=== PATIENT | female | born 1970 | race American Indian/Alaskan Native ===

== ENCOUNTER 2020-12-31 07:44 | Day surgery (SDC) | payer BC, OTHER ==
[~2020-12-31 07:44] MED LIST: Lactated Ringers 1,000 ML IV SCH
[2020-12-31] MEDS ORDERED: Propofol 200 MG/20 ML SDV ONE ×2 (08:51→10:04)
[2020-12-31] MEDS ORDERED: Lidocaine 2% 5 ML SDV ONE (08:51)
--- NOTE | 2020-12-31 09:05 | PCM.PREANE ---
Preanesthetic Assessment - Anesthesia/Transfusion/Family Hx Anesthesia History: Prior Anesthesia Without Reaction Family History of Anesthesia Reaction: No Transfusion History: No Prior Transfusion(s) - Review of Systems General: No Symptoms Pulmonary: No Symptoms Cardiovascular: No Symptoms Gastrointestinal: No Symptoms Neurological: No Symptoms Other: Reports: None - Physical Assessment NPO Status Date: 12/31/20 NPO Status Time: 00:01 Height: 5 ft 10 in Weight: 213 lb ASA Class: 2 Mental Status: Alert & Oriented x3 Airway Class: Mallampati = 2 Dentition: Reports: Normal Dentition ROM/Head Extension: Full Lungs: Clear to Auscultation, Normal Respiratory Effort Cardiovascular: Regular Rate, Regular Rhythm - Lab Values: Laboratory Last Values Urine HCG, Qual NEGATIVE (NEGATIVE) 12/31/20 07:50 SARS-CoV-2 RNA (ESDRAS) NEGATIVE (NEGATIVE) 12/31/20 07:51 - Allergies Allergies/Adverse Reactions: Allergies Allergy/AdvReac Type Severity Reaction Status Date / Time animal dander Allergy Sneezing Verified 12/25/20 11:29 dust mites Allergy Other Uncoded 12/25/20 11:29 - Anesthesia Plan Pre-Op Medication Ordered: None - Acknowledgements Anesthesia Type Planned: General Anesthesia Pt an Appropriate Candidate for the Planned Anesthesia: Yes Alternatives and Risks of Anesthesia Discussed w Pt/Guardian: Yes Pt/Guardian Understands and Agrees with Anesthesia Plan: Yes Additional Comments: npo hayfever motion sickness w nausea adhd tob quit jun 2019 etoh none obesity bmi 31 par no questions PreAnesthesia Questionnaire HEENT History: Reports: Allergic Rhinitis, Other (See Below) Other HEENT History: wears glasses and contacts Cardiovascular History: Reports: None Respiratory History: Reports: None Gastrointestinal History: Reports: None Genitourinary History: Reports: None GUEST ATTENDANT History: Reports: None Musculoskeletal History: Reports: Arthritis, Fracture Other Musculoskeletal History: hx of fx right pinky finger Neurological History: Reports: Other (See Below) Other Neuro History: hx of motion sickness Psychiatric History: Reports: Other (See Below) Other Psychiatric History: takes Adderal to help her focus Endocrine/Metabolic History: Reports: None Hematologic History: Reports: None Immunologic History: Reports: None Oncologic (Cancer) History: Reports: None Dermatologic History: Reports: Psoriasis - Past Surgical History Head Surgeries/Procedures: Reports: None HEENT Surgical History: Reports: None Cardiovascular Surgical History: Reports: None Respiratory Surgical History: Reports: None GI Surgical History: Reports: Colonoscopy, Other (See Below) Other GI Surgeries/Procedures: Abdominoplasty Female Surgical History: Reports: Breast Implant Endocrine Surgical History: Reports: None Neurological Surgical History: Reports: Lumbar Spine, Spinal Fusion, Thoracic Spine Musculoskeletal Surgical History: Reports: Other (See Below) Other Musculoskeletal Surgeries/Procedures:: ORIF right pinky finger- no cordero rdware Oncologic Surgical History: Reports: None - SUBSTANCE USE Tobacco Use Status *Q: Former Tobacco User Tobacco Use Within Last Twelve Months: No Recreational Drug Use History: No - HOME MEDS Home Medications: Home Meds Amphetamine/Dextroamphetamine [Adderall] 10 mg PO DAILY 12/25/20 [History] Cyclobenzaprine HCl 10 mg PO BEDTIME PRN 12/25/20 [History] Naproxen [Naprosyn] 250 mg PO DAILY PRN 12/25/20 [History] - CURRENT (IN HOUSE) MEDS Current Meds: Current Medications Lactated Ringer's (Ringers, Lactated) 1,000 mls @ 125 mls/hr IV ASDIRECTED TAB Discontinued Medications Lidocaine (Lidocaine 2% 5 Ml Sdv) Confirm Administered Dose 5 ml .ROUTE .STK-MED ONE Stop: 12/31/20 08:52 Propofol (Propofol 200 Mg/20 Ml Sdv) Confirm Administered Dose 400 mg .ROUTE .STK-MED ONE Stop: 12/31/20 08:52
--- NOTE | 2020-12-31 10:32 | PCM.OPNOTE ---
- General Post-Op/Procedure Note Date of Surgery/Procedure: 12/31/20 Operative Procedure(s): egd bx and colonoscopy Findings: see [id number] Pre Op Diagnosis: +ve FOBT (fecal occult blood test) Post-Op Diagnosis: Same Anesthesia Technique: Moderate Sedation Primary Surgeon: Aly Avendaño Pathology: egd bx Complications: None Condition: Good
--- NOTE | 2020-12-31 10:51 | PCM.POSTAN ---
POST ANESTHESIA ASSESSMENT - MENTAL STATUS Mental Status: Alert (no anesthesia problems), Oriented - VITAL SIGNS Vital Signs: Last Vital Signs Temp 97.2 F 12/31/20 08:59 Pulse 56 L 12/31/20 10:40 Resp 13 12/31/20 10:40 BP 120/75 12/31/20 10:40 Pulse Ox 99 12/31/20 10:40 - RESPIRATORY Respiratory Status: Respiratory Rate WNL, Airway Patent, O2 Saturation Stable - CARDIOVASCULAR CV Status: Pulse Rate WNL, Blood Pressure Stable - GASTROINTESTINAL GI Status: No Symptoms - POST OP HYDRATION Hydration Status: Adequate & Stable
--- NOTE | 2020-12-31 10:51 | PCM48HPAN ---
Post Anesthesia Note - EVALUATION WITHIN 48HRS OF ANESTHETIC Vital Signs in Normal Range: Yes Patient Participated in Evaluation: Yes Respiratory Function Stable: Yes Airway Patent: Yes Cardiovascular Function Stable: Yes Hydration Status Stable: Yes Pain Control Satisfactory: Yes Nausea and Vomiting Control Satisfactory: Yes Mental Status Recovered: Yes Vital Signs: Last Vital Signs Temp 97.2 F 12/31/20 08:59 Pulse 56 L 12/31/20 10:40 Resp 13 12/31/20 10:40 BP 120/75 12/31/20 10:40 Pulse Ox 99 12/31/20 10:40
[2020-12-31 11:55] VITALS: BP 115/61; PULSE 60
--- NOTE | 2020-12-31 20:18 | OR ---
SURGEON: Aly Avendaño MD DATE OF PROCEDURE: 12/31/2020 PREOPERATIVE DIAGNOSIS: Positive fecal occult blood. POSTOPERATIVE DIAGNOSIS: Positive fecal occult blood. PROCEDURE PERFORMED: Esophagogastroduodenoscopy with biopsy and colonoscopy. DESCRIPTION OF PROCEDURE: EGD: The patient was taken to the endoscopy room, and with the [facility] [facility], Diprivan was administered. A well-lubricated EGD scope was gently inserted through the oropharynx, down the esophagus, passing through the gastroesophageal junction, into the stomach. The mucosa was examined upon the passage. Any etiology will be noted. Once in the stomach, we continued to advance to the distal antrum, passed through the pylorus into the second portion of the duodenum. Again, the mucosa was examined for any abnormality and etiology. The scope was then retrieved back to the stomach and then retroflexed to look at the fundus of the stomach. If a biopsy was indicated, we will biopsy the antrum, body, and gastroesophageal junction. The air will be sucked out while the scope is retrieved to reduce the patient's discomfort. The patient tolerated the procedure well. There were no intraoperative complications. Dr. Avendaño was present through the whole procedure. Prior to surgery, a time-out had been called, the patient identified, procedure identified and antibiotic administered. Colonoscopy: The patient was taken to the endoscopy room. A time out was called, patient identified, and procedure identified. Diprivan was then administrated. Patient went from awake to sleep, hearing doctor talking or door closing is normal. Perineum inspection and digital examination were then performed. A well-lubricated colonoscope was gently inserted through the rectum, advanced past the rectosigmoid junction, the descending colon, splenic flexure, transverse colon, hepatic flexure, ascending colon, arrived to the cecum. Cecum was identified as dictated in the finding. Then the scope was carefully withdrawn while attention was paid to the mucosal surface for any abnormality. Air will be sucked out during the scope withdrawal. At the rectum, retroflexed to examine any rectal diseases, fistula or hemorrhoids. Patient tolerated procedure well. There were no intraoperative complications, and Dr. Avendaño was present throughout the whole procedure. FINDINGS: EGD findings: 1. The patient is easily sedated with [employer] [employer] and Diprivan, patient is soundly snoring. 2. Oropharynx and proximal esophagus are free of disease, stricture, inflammation. Distal esophagus at GE junction at 40 shows moderate salmon- colored change, suggests moderate acid reflux. Stomach rugae is normal in appearance. Antrum looks fine. Duodenum looks grossly normal. Retroflexed look at the fundus of the stomach, there is no hiatal hernia, but the fundus of stomach showing a lot of red color petechiae appearance. It is not bleeding, it could be micro-inflammation. Biopsy taken and then biopsy of the antrum, body, and GE junction at 40 and sucked out the gas while scope pulling out. During the whole study, there was no bile, no food, no blood. Colonoscopy findings: 1. The patient is easily sedated with [employer] and Diprivan, patient is soundly snoring. 2. Bowel prep is average with some opaque liquid stool, no semi-formed stool, no stool ball. Colon is little bit redundant at the sigmoid requiring some abdominal compression and maneuver in order to get to the cecum. Cecum indicated by ileocecal fold, one-to-one indentation, appendiceal orifice and ScopeGuide is pointing south. Mucosa examined upon scope pulling out and the patient does not have diverticulosis, polyp, mass, growth, inflammation, stricture, AV malformation, bleeding, inflammation, stool is yellow, none of those. The patient has some external hemorrhoids, some internal hemorrhoids, mild to moderate. The patient would benefit from repeat colonoscopy in 10 years from today or if clinically indicated otherwise. ARIANE / NATALYA /[id number] AMILCAR
== END 2020-12-31 11:05 | disposition home or self-care (01) ==
LOC: MW.SDS 07:44
PROVIDERS: ATTEND Surgery
DX: R19.5 Other fecal abnormalities (principal); K29.50 Unspecified chronic gastritis without bleeding; K25.9 Gastric ulcer, unspecified as acute or chronic, without hemorrhage or perforation; K64.4 Residual hemorrhoidal skin tags; K64.8 Other hemorrhoids; F17.210 Nicotine dependence, cigarettes, uncomplicated; B96.81 Helicobacter pylori [H. pylori] as the cause of diseases classified elsewhere; Z01.812 Encounter for preprocedural laboratory examination; Z20.822 Contact with and (suspected) exposure to COVID-19; Z91.09 Other allergy status, other than to drugs and biological substances; Z79.899 Other long term (current) drug therapy; Z98.890 Other specified postprocedural states
CPT/HCPCS: 43239; 45378; 81025; 87635; 88305; 88312; J2704; J7120; 00813; U0002

== ENCOUNTER 2021-09-18 07:36 | Day surgery (SDC) | payer BC, OTHER ==
[2021-09-18] MEDS ORDERED: fentaNYL 100 MCG/2 ML SDV ONE (10:26)
[2021-09-18] MEDS ORDERED: Lidocaine 2% 5 ML SDV ONE (10:27)
[2021-09-18] MEDS ORDERED: Propofol 200 MG/20 ML SDV ONE (11:05)
[2021-09-18 12:43] VITALS: BP 107/64; PULSE 59
== END 2021-09-18 12:22 | disposition home or self-care (01) ==
LOC: MW.SDS 07:36
PROVIDERS: ATTEND Surgery
DX: K29.50 Unspecified chronic gastritis without bleeding (principal); K31.7 Polyp of stomach and duodenum; B96.81 Helicobacter pylori [H. pylori] as the cause of diseases classified elsewhere; K31.A0 Gastric intestinal metaplasia, unspecified; F17.210 Nicotine dependence, cigarettes, uncomplicated; Z01.812 Encounter for preprocedural laboratory examination; Z20.822 Contact with and (suspected) exposure to COVID-19; Z91.048 Other nonmedicinal substance allergy status; Z79.899 Other long term (current) drug therapy; Z98.890 Other specified postprocedural states
CPT/HCPCS: 43239; 81025; 87635; J2704; J3010; J7120; 00731; U0002